=== PATIENT | male | born 1960 | race Caucasian/White ===

== ENCOUNTER 2016-09-18 10:46 | Emergency (ER) | payer BC ==
[2016-09-18 11:03] VITALS: RESP 16
--- NOTE | 2016-09-18 11:19 | EDPHY ---
H & P Time Seen by Provider: 09/18/16 11:19 HPI/ROS: CHIEF COMPLAINT: Right flank pain HISTORY OF PRESENT ILLNESS: This 55-year-old man has a history of multiple kidney stones in the past. He had lithotripsy in 1990 and then he had to have ureteroscopy stone removal and stenting in 2002. Patient presents with pain starting at 9:00 a.m. today which is 7/10 in the right flank. He describes it is a bull goring me in the back which does not radiate and is not associated with nausea vomiting or urinary symptoms. Not better worse with anything but identical to previous renal colic symptoms. REVIEW OF SYSTEMS: Eye: no change in vision ENT: no sore throat Cardiac: no chest pain or syncope Pulmonary: no cough or SOB Abdomen: no vomiting, diarrhea, abdominal pain Musculoskeletal: HPI Skin: no rash Neuro: no headache Constitutional: no fever : no urinary symptoms and no penile or testicular symptoms. A comprehensive 10 point review of systems is otherwise negative aside from elements mentioned in the history of present illness. PAST MEDICAL HISTORY: Includes hypertension and renal colic.Type 2 diabetes and hypercholesterolemia. Social history: Nonsmoker General Appearance: Alert and conversant, cooperative. Eyes: No scleral icterus. ENT, Mouth: Normal mucous membranes. Respiratory: Normal respiratory effort, breath sounds equal, lungs are clear to auscultation. Cardiovascular: Regular rate and rhythm. Normal femoral pulses. Gastrointestinal: Abdomen is soft and non tender. No hernia noted. Neurological: Alert and oriented x3. Normally conversant. Face symmetric, normal movement and sensation in all extremities. Patellar reflexes 2+ and symmetric. Normal dorsiflexion and plantar flexion of both feet. Skin: Warm and dry, no rashes. No evidence of zoster. No cellulitis on the right anterior or posterior abdominal wall. Not red or warm to the touch or other skin changes. Musculoskeletal: No CVA tenderness. Psychiatric: Not agitated. Emergency Department course/MDM: Morphine 4 mg IV. Plan for urine dip and CT imaging. Risk benefit and alternatives discussed, and I think it is appropriate given the fact the patient at least 50% of the time in the past had to have intervention for his renal colic. 1155: Results discussed, patient still has significant pain, consider CT with IV contrast at this time. 1329: UA noted normal, BUN and creatinine 15 and 1.0. Hematocrit 46. Sodium 142. CT with IV contrast ordered to evaluate vascular and possibility of aneurysm or dissection, or renal infarct. 1425: CT abdomen and pelvis with IV contrast reviewed with Dr. Jones at this time is normal. Likely musculoskeletal. Symptomatic treatment. Results discussed the patient. Smoking Status: Never smoked Constitutional: Initial Vital Signs Temperature (C) 36.4 C 09/18/16 10:50 Heart Rate 88 09/18/16 10:50 Respiratory Rate 16 09/18/16 10:50 Blood Pressure 143/94 H 09/18/16 10:50 O2 Sat (%) 93 09/18/16 10:50 O2 Delivery Mode Nasal Cannula O2 (L/minute) 2 Allergies/Adverse Reactions: Penicillins Allergy (Verified 09/18/16 10:52) Home Medications: Medication Instructions Recorded Losartan Potassium 09/18/16 metFORMIN HCL 09/18/16 oxyCODONE/APAP 5/325 [Percocet] 1 - 2 tab PO Q4-6PRN PRN #11 tab 09/18/16 Medical Decision Making - Diagnostics Imaging: CT shows no ureteral stones or hydronephrosis, renal stones, RLQ skin thickening nonspecific, Helgans 1215. Differential Diagnosis: Differential for flank pain considered including but not limited to shingles, kidney stone, muscle contusion or muscle spasm, gallbladder disease, spinal problem. - Data Points Laboratory Results: Laboratory Results 09/18/16 11:25 09/18/16 11:25 09/18/16 09/18/16 09/18/16 13:16 12:50 11:25 WBC 7.99 10^3/uL (3.80-9.50) RBC 5.18 10^6/uL (4.40-6.38) Hgb 16.5 g/dL (13.7-17.5) POC Hgb 15.6 gm/dL (14.5-17.3) Hct 47.0 % (40.0-51.0) POC Hct 46 % (42.8-50.6) MCV 90.7 fL (81.5-99.8) MCH 31.9 pg (27.9-34.1) MCHC 35.1 g/dL (32.4-36.7) RDW 12.1 % (11.5-15.2) Plt Count 192 10^3/uL (150-400) MPV 10.5 fL (8.7-11.7) Neut % (Auto) 54.9 % (39.3-74.2) Lymph % (Auto) 33.3 % (15.0-45.0) [place] % (Auto) 8.0 % (4.5-13.0) Eos % (Auto) 1.3 % (0.6-7.6) Baso % (Auto) 0.9 % (0.3-1.7) Nucleat RBC Rel Count 0.0 % (0.0-0.2) Absolute Neuts (auto) 4.39 10^3/uL (1.70-6.50) Absolute Lymphs (auto) 2.66 10^3/uL (1.00-3.00) Absolute Monos (auto) 0.64 10^3/uL (0.30-0.80) Absolute Eos (auto) 0.10 10^3/uL (0.03-0.40) Absolute Basos (auto) 0.07 10^3/uL (0.02-0.10) Absolute Nucleated RBC 0.00 10^3/uL (0-0.01) Immature Gran % 1.6 H % (0.0-1.1) Immature Gran # 0.13 H 10^3/uL (0.00-0.10) POC Sodium 142 mEq/L (134-144) Sodium 140 mEq/L (134-144) POC Potassium 4.0 mEq/L (3.3-5.0) Potassium 4.5 mEq/L (3.5-5.2) POC Chloride 107 mEq/L (96-108) Chloride 104 mEq/L (97-110) Carbon Dioxide 22 mEq/l (22-31) Anion Gap 14 mEq/L (8-16) POC BUN 15 mg/dL (7-23) BUN 15 mg/dL (7-23) Creatinine 1.1 mg/dL (0.7-1.3) POC Creatinine 1.0 mg/dL (0.8-1.5) Estimated GFR > 60 Glucose 240 H mg/dL (70-100) POC Glucose 157 H mg/dL (70-100) Calcium 9.2 mg/dL (8.5-10.4) Urine RBC 1-3 /hpf (0-3) Urine WBC 1-3 /hpf (0-3) Ur Epithelial Cells TRACE /lpf (NONE-1+) Urine Mucus TRACE /lpf (NONE-1+) Medications Given: Discontinued Medications Sodium Chloride (Ns) 1,000 mls @ 0 mls/hr IV ONCE ONE PRN Reason: Wide Open Stop: 09/18/16 11:42 Last Admin: 09/18/16 11:47 Dose: 1,000 mls Morphine Sulfate (Morphine) 4 mg IVP EDNOW ONE Stop: 09/18/16 11:34 Last Admin: 09/18/16 11:40 Dose: 4 mg Point of Care Test Results: 09/18/16 13:16 POC Sodium 142 POC Potassium 4.0 POC Chloride 107 POC BUN 15 POC Creatinine 1.0 POC Glucose 157 H Departure - Departure Disposition: Home, Routine, Self-Care Clinical Impression: Back pain Condition: Good Instructions: Acute Low Back Pain (ED) Referrals: Anant Black PA [Primary Care Provider] - As per Instructions Prescriptions: oxyCODONE/APAP 5/325 [Percocet] 1 - 2 tab PO Q4-6PRN PRN #11 tab PRN Reason: Pain
[2016-09-18] MEDS ORDERED: NS 1,000 ML IV ONE (11:41)
--- NOTE | 2016-09-18 12:33 | CT ---
CT Scan of the Urinary Tract (Abdomen and Pelvis Without Contrast) Indication: Right flank pain. Technique: Multidetector helical CT imaging was performed from the kidneys to the urinary bladder wi thout contrast. Dose reduction techniques were utilized. Comparison: None. Findings: No hydronephrosis or ureteral calculi. Bilateral nonobstructing renal calculi. One on the r ight measures 1 mm and 2 calculi in the left measure 1 and 2 mm each. The urinary bladder has normal volume with no intraluminal calculus. The liver has generalized decreased attenuation with focal fatty sparing adjacent to the gallbladder. The gallbladder contains a dependent 5 mm calcified gallstone. The gallbladder is otherwise normal. No biliary dilation or common bile duct stone. The spleen, pancreas, and adrenal glands are normal. Bowel pattern is normal. Appendix is well visualized and normal. The lung bases are clear except for minimal linear scarring versus atelectasis in the left lower lobe . The heart size is normal. The abdominal aorta has normal caliber with trace calcified plaque. Bilateral L5 pars defect is present with grade 1 anterolisthesis of L5 on S1. Diffuse broad-based dis k bulge combined with uncovertebral and facet hypertrophy results in severe bilateral neural foramina l stenosis. No fracture or bone lesion. A tiny umbilical hernia contains only fat. Nonspecific skin thickening and subcutaneous edema is pres ent along the right lower quadrant. Impression: 1. No hydronephrosis or obstructing ureteral calculi. 2. Bilateral nephrolithiasis. 3. Cholelithiasis. 4. Hepatic steatosis. 5. Severe bilateral neural foraminal stenosis at L5-S1 due to grade 1 spondylolisthesis of L5 on S1 a nd bilateral L5 pars defect. Comment: Results were discussed with Dr. Carlos Eduardo Massey at 12:15 PM September 18, 2016. Attention: This CT examination is specifically designed to evaluate patients who are clinically susp ected of having acute obstructive uropathy. This examination does not use radiographic contrast, and as such, provides only a limited evaluation of the abdomen, pelvis and retroperitoneum. If there i s further clinical suspicion for pathological conditions other than obstructive uropathy, a complete CT evaluation of the abdomen and pelvis utilizing intravenous, oral, and rectal contrast should be co nsidered.
[2016-09-18 13:10] LABS: MUCUS TRACE /lpf (NONE-1+)
[2016-09-18 13:26] LABS: % IMMATURE GRANULYOCYTES 1.6 % (0.0-1.1); ABSOLUTE IMMATURE GRANULOCYTES 0.13 10^3/uL (0.00-0.10); ADD DIFF? NO; ADD MORPH? NO; ADD SCAN? NO; ATYPICAL LYMPHOCYTE FLAG 0 (0-99); FRAGMENT RBC FLAG 0 (0-99); HEMOGLOBIN 16.5 g/dL (13.7-17.5); LEFT SHIFT FLG 10 (0-99); LIPEMIA HEMOLYSIS FLAG 90 (0-99); MEAN CELL HEMOGLOBIN 31.9 pg (27.9-34.1); MEAN CELL HEMOGLOBIN CONCENTR. 35.1 g/dL (32.4-36.7); MEAN CELL VOLUME 90.7 fL (81.5-99.8); MEAN PLATELET VOLUME 10.5 fL (8.7-11.7); PLATELET CLUMPS FLAG 0 (0-99); PLATELET COUNT 192 10^3/uL (150-400); RED BLOOD CELL COUNT 5.18 10^6/uL (4.40-6.38); RED CELL DISTRIBUTION WIDTH 12.1 % (11.5-15.2)
[2016-09-18 13:33] LABS: ANION GAP 14 mEq/L (8-16); CALCIUM 9.2 mg/dL (8.5-10.4); CARBON DIOXIDE 22 mEq/l (22-31); CHLORIDE 104 mEq/L (97-110); CREATININE 1.1 mg/dL (0.7-1.3); GLOMERULAR FILTRATION RATE > 60; GLUCOSE 240 mg/dL (70-100); POTASSIUM 4.5 mEq/L (3.5-5.2); SODIUM 140 mEq/L (134-144)
[2016-09-18] MEDS ORDERED: IOPAMIDOL (ISOVUE-300) 100 ML BTL IV ONE (13:34)
--- NOTE | 2016-09-18 14:34 | CT ---
CT Scan of the Abdomen and Pelvis (With Contrast) 1359 hours History: Right flank pain and right abdominal pain. Technique: Axial computed tomographic images of the abdomen and pelvis were obtained with the unevent ful intravenous administration of 98 mL Isovue-300 contrast. . Images were reviewed in multiple plane s. Dose reduction techniques were utilized. CT Abdomen and Pelvis Findings: Comparison to prior noncontrast CT study performed earlier today at 1 209 hours. Lung bases: There are a few bands of subsegmental atelectasis at the lung bases posteriorly. Liver: There is mild diffuse hepatic steatosis without focal liver mass. The liver is normal in size. Spleen: Normal. Gallbladder and Bile Ducts: There is a small gallstone suspected in the gallbladder measuring about 5 mm. No gallbladder wall thickening is identified or pericholecystic fluid. There is no biliary duct al dilatation. Pancreas: Normal. Adrenals: Normal. Kidneys: No obstruction or solid masses. There is a 1.5 cm cyst upper pole left kidney. Within the mi d to lower left kidney there is a 3 mm nonobstructive calculus as well as a 2 mm nonobstructive calcu florinda lower pole right kidney. The ureters are normal in course and caliber without ureteral calculus. Abdominal Aorta: No aneurysm. Pelvic structures: No pelvic masses or lymphadenopathy is identified. Bladder: Normal. Appendix: Normal. Bowel Loops: Normal. No bowel obstruction, ascites, or significant retroperitoneal lymphadenopathy. The terminal ileum is normal in appearance. Skeletal system: Vertebral body heights are well-maintained. There are no significant lytic or scler otic osseous lesions. Moderate to marked disk space narrowing and hypertrophic osteophyte is noted at L5-S1 with bilateral millimeters of anterior subluxation of L5 on S1 secondary to spondylolysis of t he L5 pars interarticularis. There is associated moderate bilateral neural foraminal stenosis. Impression: 1. Mild to moderate hepatic steatosis. 2. No CT evidence of appendicitis, abscess or bowel obstruction. 3. Small gallstone in the gallbladder. 4. Incidental cyst upper pole left kidney. 5. Bilateral nonobstructive nephrolithiasis. 6. Spondylolisthesis of L5 on S1 secondary to spondylolysis. These findings were reviewed in the radiology department with Dr. Carlos Eduardo Massey at 1430 hrs.
[2016-09-18] MEDS ORDERED: ONDANSETRON 4 MG/2 ML VIAL ONE (14:47)
[2016-09-18] MEDS ORDERED: ONDANSETRON 4 MG/2 ML VIAL IVP ONE (14:53)
[2016-09-18 14:55] VITALS: BP 115/75; PULSE 76; TEMP 98.2; O2SAT 93
== END 2016-09-18 14:55 | disposition home or self-care (01) ==
DX: M54.9 Dorsalgia, unspecified (principal); I10 Essential (primary) hypertension; E11.9 Type 2 diabetes mellitus without complications
CPT/HCPCS: 82947-QW; 96374; J2405; Q9967